=== PATIENT | female | born 1935 | race Caucasian/White ===

== ENCOUNTER 2017-04-26 09:13 | Emergency (ER) | payer MEDICARE, BC ==
[~2017-04-26] VITALS: Ht 157.5 cm; Wt 53.1 kg
--- NOTE | ~2017-04-26 | EKG ---
PATIENT: BRAXTON BEARD UNIT #: [id number] Ventricular Rate: 55 BPM Atrial Rate: 55 BPM P-R Interval: 180 ms QRS Duration: 94 ms Q-T Interval: 464 ms QTC Calculation(Bezet): 443 ms P Fox: 57 degrees Calculated R Fox: -8 degrees Calculated T Fox: -28 degrees Diagnosis Line: Sinus bradycardia Diagnosis Line: Left ventricular hypertrophy with repolarization Diagnosis Line: abnormality Diagnosis Line: Abnormal ECG Diagnosis Line: Diagnosis Line: Confirmed by ELIECER GREEN MD ([id number]) on 04/26/2017 Diagnosis Line: 6:55:10 PM INTERPRETING MD: PETER GAMING
--- NOTE | ~2017-04-26 | CR72 ---
[facility] A Service of [facility] & [facility] RADIOLOGY TEXT RESULTS PATIENT: BRAXTON BEARD LOCATION: [facility] : 35 UNIT #: [id number] AGE: [address]: José Cotton DO SEX: F ORDER DR: [id number] [facility] [address] [place], [place] [address] [id number] MR#: [id number] Acc #: [id number] NAME: BRAXTON BEARD : 1935 SEX: F STUDY DATE/TIME: 04/26/2017 10:02 UNIT: [facility] ROOM: STUDY DESCRIPTION: CR Chest Single View Portable Attending Physician: José Cotton D.O. Ordering Physician: José Cotton D.O. Primary Care Physician: Wood Kaye M.D. MEDICAL IMAGING REPORT This report is preliminary unless electronic signature is present EXAM AP portable chest, 04/26/2017. HISTORY 81-year-old female complains of shortness of breath today. Trembling. COMPARISON PA and lateral chest radiograph 10/29/2014. FINDINGS Emphysematous changes. No acute airspace disease. Heart size within normal limits. No pleural effusion or pneumothorax. Old right rib fractures. No acute osseous abnormalities are identified. IMPRESSION 1. Pulmonary hyperinflation suggesting emphysematous change. No acute chest findings. 2. Old right rib fractures. Dictated by... Asia Mike M.D. THIS IS AN ELECTRONICALLY VERIFIED REPORT Asia Mike M.D. at 04/27/2017 2:20 PM QUIQUE/jade TD: 04/26/2017 14:12 JOB #: [id number] MEDICAL IMAGING REPORT Page 1 of 1 COPY
[~2017-04-26 09:13] MED LIST: ADVIL200 M2 PO; ALENDRONATE SOD70 MG PO; BENADRYL25 M3 PO; BENTYL10 MG PO; CALCIUM 600 +1 EAC6 PO; CALTRATE 600 W-1 TAB PO; CALTRATE-600/VI1 TA1 PO; COLACE PO; DULCOLAX5 MG PO; FLEXERIL10 MG; FLEXERIL10 MG PO; FOSAMAX70 MG PO; LORTAB 5/500 TA1 TA1 PO; LORTAB 7.5-5001 TAB PO; MACROBID100 MG PO; PREDNISONE5 M1; PREDNISONE5 M1 PO; PRILOSEC20 MG PO; VICODIN ES 7.51 EACH; VITAMIN D250000 UNIT PO; VITAMIN D5000 UNIT PO
[2017-04-26 10:21] LABS: POC - CKMB 1.9 ng/mL (0.0-7.9); POC - TROPONIN <0.05 ng/mL (<=0.05)
[2017-04-26 10:28] LABS: BASOPHIL% 0.3 % (0-2.5); EOSINOPHIL# 0.1 X10e3 (0-0.7); HEMATOCRIT 38.6 % (35.0-45.0); HEMOGLOBIN 12.6 gm/dL (12.0-16.0); LYMPHOCYTE# 2.9 X10e3 (1.0-3.5); LYMPHOCYTE% 36.4 % (17.0-45.0); MEAN CELL VOLUME 87.8 FL (83-96); MEAN CORPUSCULAR HEMOGLOBIN 28.7 PG (28-34); MEAN CORPUSCULAR HGB CONC 32.7 g/dL (30-36); MEAN PLATELET VOLUME 7.6 FL (6.5-11.5); MONOCYTE# 0.3 X10e3 (0-1.0); MONOCYTE% 3.4 % (3.0-12.0); NEUTROPHIL# 4.7 X10e3 (1.5-7.1); NEUTROPHIL% 58.9 % (40-75); PLATELET COUNT 171 X10e3 (140-420); RED BLOOD COUNT 4.39 X10e (3.90-5.30); RED CELL DISTRIBUTION WIDTH 13.5 % (11.0-15.5); WHITE BLOOD COUNT 7.9 X10e3 (4.0-10.5)
[2017-04-26 10:30] LABS: DIFF IND NO
[2017-04-26 10:44] LABS: PROTHROMBIN TIME (PATIENT) 10.9 SECONDS (10.0-11.7)
[2017-04-26 10:57] LABS: ALBUMIN SERUM 3.9 g/dL (3.5-5.0); BILIRUBIN, DIRECT 0.1 mg/dL (0.0-0.2); BILIRUBIN,INDIRECT 0.7 mg/dL (0.0-0.9); BILIRUBIN,TOTAL 0.8 mg/dL (0.2-2.0); BUN/CREATININE RATIO 33.33; CALCIUM SERUM 9.3 mg/dL (8.4-10.2); CREATININE SERUM 0.6 mg/dL (0.6-1.4); GLOM FILT RATE Estimated 85.5 mL/min (>60); POTASSIUM 3.9 mmol/L (3.5-5.1); PROTEIN TOTAL SERUM 6.9 g/dL (6.0-8.3)
[2017-04-26 12:10] LABS: POC - CKMB 1.9 ng/mL (0.0-7.9); POC - TROPONIN <0.05 ng/mL (<=0.05)
[2017-04-26 12:26] LABS: URINE SOURCE CLEAN CATCH
[2017-04-26 12:42] LABS: URINE APPEARANCE CLOUDY; URINE BILIRUBIN NEG (NEG); URINE BLOOD NEG (NEG); URINE COLOR YELLOW; URINE GLUCOSE NEG (NEG); URINE KETONE TRACE (NEG); URINE LEUKOCYTE ESTERASE TRACE (NEG); URINE NITRATE NEG (NEG); URINE PROTEIN NEG (NEG); URINE SPECIFIC GRAVITY 1.011 (1.003-1.035); URINE UROBILINOGEN 0.2 MG/DL (NEG)
[2017-04-26 12:48] LABS: URBCS1 AUWI 0-2 /[HPF] (0-2); URINE BACTERIA AUWI NEG (NEGATIVE); URINE SQUAMOUS EPITHELIAL CELL NONE SEEN /[HPF]; UWBCS1 AUWI 0-2 (0-5)
[2017-04-26 12:52] LABS: CULTURE INDICATED? NO
== END 2017-04-26 13:51 | disposition left against medical advice (07) ==
LOC: CED 09:13
PROVIDERS: Emergency Medicine
DX: R07.9 Chest pain, unspecified (principal); Z90.49 Acquired absence of other specified parts of digestive tract; Z88.1 Allergy status to other antibiotic agents; Z88.5 Allergy status to narcotic agent
CPT/HCPCS: 36415; 71010; 80048; 80076; 81003; 82553; 84484; 85025; 85610; 85730; 93005; 99285